=== PATIENT | female | born 1995 | race African-American/Black ===

== ENCOUNTER → 2025-02-03 | Emergency (ER) | payer OTHER ==
[~2025-02-03] VITALS: Ht 157.5 cm; Wt 59.1 kg
[~2025-02-03] MED LIST: HYDR-4808 PO
[2025-02-03 22:57] VITALS: BP 134/74; PULSE 100; RESP 20; TEMP 98.2; O2SAT 100
== END | disposition still patient (30) ==
LOC: EMS 22:51 → EDSEX 22:51
DX: F41.9 Anxiety disorder, unspecified (principal); K52.9 Noninfective gastroenteritis and colitis, unspecified; F14.90 Cocaine use, unspecified, uncomplicated
CPT/HCPCS: 93005; 99283